=== PATIENT | male | born 1980 | race African-American/Black ===

== ENCOUNTER 2017-03-17 13:33 | Emergency (ER) | payer OTHER ==
--- NOTE | ~2017-03-17 | EKG ---
PATIENT: CONNIE BULL UNIT #: [id number] Ventricular Rate: 50 BPM Atrial Rate: 50 BPM P-R Interval: 170 ms QRS Duration: 80 ms Q-T Interval: 432 ms QTC Calculation(Bezet): 393 ms P [place]: 0 degrees Calculated R [place]: 5 degrees Calculated T [place]: 24 degrees Diagnosis Line: Sinus bradycardia Diagnosis Line: Otherwise normal ECG Diagnosis Line: No previous ECGs available Diagnosis Line: Confirmed by TAB BLAND MD ([id number]) on Diagnosis Line: 03/18/2017 4:47:14 PM INTERPRETING MD: BALDO MCDUFFIE
--- NOTE | ~2017-03-17 | CR63 ---
[facility]. [facility] A Service of [facility] & [facility] RADIOLOGY TEXT RESULTS PATIENT: CONINE BULL LOCATION: SED : 82 UNIT #: [id number] AGE: [address]: ELOISA ESPAÑA PA-C SEX: M ORDER DR: [id number] [address] [id number] E MR#: [id number] Acc #: [id number] NAME: CONNIE BULL : 1980 SEX: M STUDY DATE/TIME: 03/17/2017 14:08 UNIT: SED ROOM: STUDY DESCRIPTION: CR Chest 2 View Attending Physician: Eloisa España Pa-C Ordering Physician: Physician Non-Staff Primary Care Physician: [facility], [facility]. MEDICAL IMAGING REPORT This report is preliminary unless electronic signature is present. EXAM Two-view chest HISTORY Feels knot in center of chest. Pain with coughing. Symptoms for 2 days. FINDINGS PA and lateral examination of the chest upright shows a good expansion of the parenchyma with a normal distribution of the pulmonary vascularity. There is no indication of congestion, effusion, infiltrate, tumor, or nodular density. The pleural reflections and diaphragmatic contours are normal. The cardiac silhouette and mediastinal anatomy is within normal limits. IMPRESSION Normal chest. Dictated by... Guevara Contreras M.D. THIS IS AN ELECTRONICALLY VERIFIED REPORT Guevara Contreras M.D. at 03/18/2017 2:43 PM HIGINIO/melecio TD: 03/17/2017 15:42 JOB #: [id number] MEDICAL IMAGING REPORT Page 1 of 1
[~2017-03-17 13:33] MED LIST: ATHLETE'S FOOT15 GM TOP; FLEXERIL10 MG PO; IBUPROFEN800 MG PO; LORTAB 5-325 M1 EACH PO; NO MEDICATIONS; PREDNISONE PO; VOLTAREN75 MG PO
[2017-03-17 15:12] LABS: BASOPHIL# 0.1 X10e3 (0-0.3); BASOPHIL% 1.2 % (0-2.5); EOSINOPHIL# 0.2 X10e3 (0-0.7); EOSINOPHIL% 2.2 % (0.0-7.0); HEMOGLOBIN 13.4 gm/dL (13.0-16.0); LYMPHOCYTE# 3.7 X10e3 (1.0-3.5); LYMPHOCYTE% 34.5 % (17.0-45.0); MEAN CORPUSCULAR HEMOGLOBIN 27.5 PG (28-34); MEAN CORPUSCULAR HGB CONC 32.7 g/dL (30-36); MEAN PLATELET VOLUME 7.6 FL (6.5-11.5); MONOCYTE# 0.8 X10e3 (0-1.0); MONOCYTE% 7.4 % (3.0-12.0); NEUTROPHIL# 5.9 X10e3 (1.5-7.1); NEUTROPHIL% 54.7 % (40-75); PLATELET COUNT 281 X10e3 (140-420); RED BLOOD COUNT 4.87 X10e (3.90-5.60); RED CELL DISTRIBUTION WIDTH 13.3 % (11.0-15.5); WHITE BLOOD COUNT 10.7 X10e3 (4.0-10.5)
[2017-03-17 15:26] LABS: POC - CKMB <1.0 ng/mL (0.0-7.9); POC - TROPONIN <0.05 ng/mL (<=0.05)
[2017-03-17 15:28] LABS: DIFF IND NO
[2017-03-17 15:57] LABS: ALBUMIN SERUM 3.3 g/dL (3.5-5.0); BILIRUBIN,TOTAL 0.6 mg/dL (0.2-2.0); CALCIUM SERUM 7.7 mg/dL (8.4-10.2); GLOM FILT RATE Estimated 111.7 mL/min (>60); POTASSIUM 3.7 mmol/L (3.5-5.1); PROTEIN TOTAL SERUM 5.5 g/dL (6.0-8.3)
[2017-03-17 16:38] LABS: URINE SOURCE CLEAN CATCH
[2017-03-17 16:41] LABS: URINE APPEARANCE CLEAR; URINE BILIRUBIN NEG (NEG); URINE BLOOD NEG (NEG); URINE COLOR YELLOW; URINE GLUCOSE NEG (NORM); URINE KETONE NEG (NEG); URINE LEUKOCYTE ESTERASE NEG (NEG); URINE NITRATE NEG (NEG); URINE PROTEIN NEG (NEG); URINE UROBILINOGEN 0.2 MG/DL (NORM)
[2017-03-17 16:45] LABS: MICRO INDICATED? NO
[2017-03-17 16:50] LABS: AMPHETAMINE NEG (NEG); BARBITURATES NEG (NEG); BENZODIAZEPINES NEG (NEG); COCAINE POS (NEG); MARIJUANA POS (NEG); OPIATES NEG (NEG); TRICYCLIC ANTIDEPRESSANTS NEG (NEG); U METHADONE NEG (NEG)
== END 2017-03-17 17:16 | disposition home or self-care (01) ==
LOC: SED 13:33
PROVIDERS: Physician Assistant
DX: R07.9 Chest pain, unspecified (principal); F14.90 Cocaine use, unspecified, uncomplicated; F12.90 Cannabis use, unspecified, uncomplicated; F17.210 Nicotine dependence, cigarettes, uncomplicated
CPT/HCPCS: 36415; 71020; 80053; 80307; 81003; 82553; 83690; 84484; 85025; 93005; 99284; J1885

== ENCOUNTER 2017-04-09 15:42 | Emergency (ER) | payer OTHER ==
[2017-04-09 16:07] LABS: URINE SOURCE CLEAN CATCH
[2017-04-09 16:09] LABS: URINE APPEARANCE CLOUDY; URINE BLOOD 3+ (NEG); URINE COLOR ORANGE; URINE GLUCOSE NEG (NORM); URINE KETONE 1+ (NEG); URINE LEUKOCYTE ESTERASE 2+ (NEG); URINE NITRATE NEG (NEG); URINE PROTEIN 1+ (NEG); URINE SPECIFIC GRAVITY >=1.030 (1.003-1.035)
[2017-04-09 16:17] LABS: MICRO INDICATED? YES; URINE BILIRUBIN NEG (NEG)
[2017-04-09 16:22] LABS: CULTURE INDICATED? YES; URINE BACTERIA 1+ (NEG); URINE RBC 200-300 /[HPF] (0-2); URINE WBC 200-300 /[HPF] (0-5)
[2017-04-13 23:46] LABS: CHLAMYDIA TRACH Not Detected (Not Detected); N GONOR Detected (Not Detected)
== END 2017-04-09 17:25 | disposition home or self-care (01) ==
LOC: SED 15:42
PROVIDERS: Physician Assistant
DX: R31.0 Gross hematuria (principal); R36.1 Hematospermia; R30.0 Dysuria; F17.210 Nicotine dependence, cigarettes, uncomplicated
CPT/HCPCS: 81003; 87086; 87491; 87591; 96372; 99283; J0696

== ENCOUNTER 2017-04-24 09:50 | Emergency (ER) | payer OTHER ==
--- NOTE | ~2017-04-24 | CR150 ---
[facility]. [facility] A Service of [facility] & [facility] RADIOLOGY TEXT RESULTS PATIENT: CONNIE BULL LOCATION: SED : 82 UNIT #: [id number] AGE: [address]: Leander Burton MD SEX: M ORDER DR: [id number] [address] [address] [id number] E MR#: [id number] Acc #: [id number] NAME: CONNIE BULL : 1980 SEX: M STUDY DATE/TIME: 04/24/2017 10:11 UNIT: SED ROOM: STUDY DESCRIPTION: CR Hip Min 2 Views Lt Attending Physician: Leander Burton M.D. Ordering Physician: Leander Burton M.D. Primary Care Physician: Leander Lovett M.D. MEDICAL IMAGING REPORT This report is preliminary unless electronic signature is present. EXAM Left hip. INDICATIONS Left hip pain for 2 days. No known injury. COMPARISON 09/13/2016 FINDINGS An AP view of the pelvis and lateral view of the left hip were obtained. The bones are normal. There is no degenerative change or narrowing. IMPRESSION Normal AP pelvis and left hip. Dictated by... Leander Bull M.D. THIS IS AN ELECTRONICALLY VERIFIED REPORT Leander Bull M.D. at 04/25/2017 9:35 PM Gladys TD: 04/25/2017 00:23 JOB #: [id number] MEDICAL IMAGING REPORT Page 1 of 1
== END 2017-04-24 11:05 | disposition home or self-care (01) ==
LOC: SED 09:50
DX: M70.62 Trochanteric bursitis, left hip (principal); M54.32 Sciatica, left side; F17.210 Nicotine dependence, cigarettes, uncomplicated
CPT/HCPCS: 73502; 99283